=== PATIENT | male | born 1940 | race Caucasian/White ===

== ENCOUNTER 2021-06-26 13:48 | Outpatient (CLI) | payer OTHER ==
[~2021-06-26 13:48] MED LIST: Magnevist 469MG/ML 20 ML VIAL ONE
== END 2021-06-26 13:49 | disposition home or self-care (01) ==
LOC: TBSIIMAG 13:48
PROVIDERS: ATTEND Neurological Surgery
DX: D32.0 Benign neoplasm of cerebral meninges (principal)
CPT/HCPCS: 70553; 82565